=== PATIENT | male | born 1990 | race Hispanic/Latino ===

== ENCOUNTER 2018-02-11 15:58 | Emergency (ER) | payer BC, MEDICAID, OTHER ==
[2018-02-11 15:59] VITALS: BMI 22.1
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
[2018-02-11] MEDS ORDERED: Oxycodone/Acetaminophen 5/325 mg Tab PO STA (16:55)
--- NOTE | 2018-02-11 17:33 | RAD ---
PROCEDURE: Left Ankle Radiographs. HISTORY: Ankle pain questionable Achilles tendon injury or COMPARISON: None FINDINGS: BONES: Normal. No fracture. JOINTS: Normal. No osteoarthritis. Ankle mortise maintained. Talar dome intact SOFT TISSUES: Normal. OTHER FINDINGS: None. IMPRESSION: Normal left ankle radiographs.
--- NOTE | 2018-02-11 19:03 | ED PDOC ---
Physical Exam Vital Signs Reviewed: Yes Vital Signs Temp Pulse Resp BP Pulse Ox 02/11/18 22:24 98.5 F 63 18 123/82 99 02/11/18 16:35 98.4 F 82 117/70 18 L Temperature: Afebrile Blood Pressure: Normal Pulse: Regular Respiratory Rate: Normal Appearance: Positive for: Well-Appearing Pain Distress: None Mental Status: Positive for: Alert and Oriented X 3 Medical Decision Making ED Course and Treatment: 02/11/18 19:02 Patient endorsed to me by Dr. Antonio. Patient awaiting follow-up MRI and splint leg. Will see Dr. Bruno as outpatient. 02/11/18 22:39 Patient was placed in a plantar flexion splint by Tito with my supervision. No Neurovascular complications. Patient was given crutches with instructions Patient was given copy of MRI results. Patient was also given a CD copy of MRI and X-ray. Patient was informed to follow up with Dr. Bruno as outpatient. - RAD Interpretation Radiology Orders: 02/11/18 16:41 ANKLE LEFT 3 VIEWS ROUTINE [RAD] Stat 02/11/18 17:27 LOWER EXT ANY JOINT LEFT [MRI] Stat - Medication Orders Current Medication Orders: Discontinued Medications Oxycodone/Acetaminophen (Percocet 5/325 Mg Tab) 1 tab PO STAT STA Stop: 02/11/18 16:56 Last Admin: 02/11/18 17:13 Dose: 1 tab MAR Pain Assessment Document 02/11/18 17:13 HI (Rec: 02/11/18 17:14 MD [id number]) Pain Reassessment Is this a pain reassessment? No Sleep Is patient sleeping during reassessment? No Presence of Pain Presence of Pain Yes Location Left, Right or Bilateral Left Pain Location Body Site Leg - Scribe Statement The provider has reviewed the documentation as recorded by the Jackson Andrews Provider Scribe Attestation: All medical record entries made by the Scribe were at my direction and personally dictated by me. I have reviewed the chart and agree that the record accurately reflects my personal performance of the history, physical exam, medical decision making, and the department course for this patient. I have also personally directed, reviewed, and agree with the discharge instructions and disposition. Disposition/Present on Arrival - Present on Arrival Any Indicators Present on Arrival: No History of DVT/PE: No History of Uncontrolled Diabetes: No Urinary Catheter: No History of Decub. Ulcer: No History Surgical Site Infection Following: None - Disposition Have Diagnosis and Disposition been Completed?: No Diagnosis: Ankle pain, Achilles tendon tear Disposition: HOME/ ROUTINE Disposition Time: 22:00 Patient Plan: Discharge Condition: GOOD Discharge Instructions (ExitCare): Achilles Tendon Rupture (DC) Additional Instructions: Mr Weber, thank you for letting us take care of you today. Your provider was Dr. Rivas You were treated for Achilles Tear. The emergency medical care you received today was directed at your acute symptoms. If you were prescribed any medication, please fill it and take as directed. It may take several days for your symptoms to resolve. Return to the Emergency Department if your symptoms worsen, do not improve, or if you have any other problems. MAKE SURE TO CALL DR VIRGILIO ORELLANA FOR FOLLOW UP APPOINTMENT TOMORROW. BRING COPY OF MRI. Please contact your doctor or call one of the physicians/clinics you have been referred to that are listed on the Patient Visit Information form that is included in your discharge packet. Bring any paperwork you were given at discharge with you along with any medications you are taking to your follow up visit. Our treatment cannot replace ongoing medical care by a primary care provider (PCP) outside of the emergency department. Thank you for allowing the [facility] team to be part of your care today. If you had an X-Ray or CT scan: A Radiologist will review the ED reading if any change in treatment is needed we will contact you. If you had a blood, urine, or wound culture: It will take several days for the results, if any change in treatment is needed we will contact you. If you had an STI test: It will take 48 hours for the results. Please call after 1 week if you have not heard back. Prescriptions: Ibuprofen [Motrin] 600 mg PO Q6 PRN #30 tab PRN Reason: Pain, Moderate (4-7) oxyCODONE/Acetaminophen [Percocet 5/325 mg Tab] 1 ea PO Q6 PRN #15 tab PRN Reason: Pain, Moderate (4-7) Referrals: Priscila Singh MD [Primary Care Provider] - Follow up with primary Ted Ratliff MD [Staff Provider] - Follow up with primary Forms: [facility] (Icelandic), WORK NOTE
--- NOTE | 2018-02-11 21:57 | MRI ---
EXAM: MR Left Lower Extremity Without Intravenous Contrast, Ankle EXAM DATE/TIME: 02/11/2018 5:27 PM CLINICAL HISTORY: The patient age is 27 years old and is male; Injury or trauma; Injury Basketball injury yesterday; Late effect from previous injury; Swelling (edema); Ankle; Left; Injury date: 02/10/2018; Additional info: L ankle/l lower leg, evaluate for achilles tendon Facility exam id and description: Mri [id number] lower ext any joint left TECHNIQUE: Multiplanar magnetic resonance images of the left ankle without intravenous contrast. COMPARISON: DX - ANKLE LEFT 3 VIEWS ROUTINE 2018-02-11 16:59 FINDINGS: LIGAMENTS: Anterior talofibular: A small amount of fluid is seen adjacent to the anterior talofibular ligament, without a definitive acute tear. Posterior talofibular: No visualized acute tear. Anterior tibiofibular: There is mild edema adjacent to the anterior tibiofibular ligament, suggestive of ligament sprain. Posterior tibiofibular: No visualized acute tear. Calcaneofibular: No definitive acute tear. Deltoid: No visualized acute tear. TENDONS: Achilles: There is a near complete tear of the Achilles tendon, with retraction of torn fibers. This tear is approximately 4.7 cm from the distal attachment on the calcaneus. Flexor: No visualized acute tear. Extensor: No visualized acute tear. Peroneal: No visualized acute tear. Tibialis anterior:No visualized acute tear. Tibialis posterior:No visualized acute tear. Muscles: No acute abnormality. Fluid: There is a small tibiotalar joint effusion posteriorly. Sinus tarsi: Mild edema of fluid are visualized within the sinus tarsi. Plantar fascia:No visualized acute tear. Bones/joints: Mild T2 hyperintense edema/contusion is visualized within the lateral malleolus. Tiny synovial or ganglion cysts are identified adjacent to the lateral cuneiform bone. Soft tissues: There is significant soft tissue swelling posteriorly. Fluid is visualized adjacent to Achilles tendon. IMPRESSION: 1. There is a near complete tear of the Achilles tendon, with retraction of torn fibers. 2. There is significant soft tissue swelling posteriorly. Fluid is visualized adjacent to Achilles tendon. 3. Mild edema/contusion is visualized within the lateral malleolus. 4. There is a small tibiotalar joint effusion posteriorly. 5. There is mild edema adjacent to the anterior tibiofibular ligament, suggestive of ligament sprain. 6. Additional findings described above.
[2018-02-11 22:24] VITALS: BP 123/82; PULSE 63; RESP 18; TEMP 98.5; O2SAT 99
== END 2018-02-11 22:30 | disposition home or self-care (01) ==
LOC: ED 15:58
DX: M25.572 Pain in left ankle and joints of left foot (principal); S86.012A Strain of left Achilles tendon, initial encounter; Y93.67 Activity, basketball; Z87.891 Personal history of nicotine dependence

== ENCOUNTER 2018-11-21 12:22 | Observation (INO) | payer MEDICAID ==
[2018-11-21 12:25] VITALS: BMI 23.2
[2018-11-21] MEDS ORDERED: Sodium Chloride 0.9% 1,000 ML IV STA (12:45)
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
[2018-11-21 13:22] LABS: BASO # 0.02 K/mm3 (0.0-2.0); BASO % 0.4 % (0.0-3.0); EOS # 0.1 (0.0-0.7); EOS % 2.8 % (1.5-5.0); HEMOGLOBIN 14.1 g/dL (14.0-18.0); LYMPH # 1.3 (1.2-3.4); LYMPH % 27.7 % (22.0-35.0); MEAN CELL VOLUME 93.5 fl (80.0-105.0); MEAN CORPUSCULAR HEMOGLOBIN 30.5 pg (25.0-35.0); MEAN CORPUSCULAR HGB CONC 32.6 g/dl (31.0-37.0); MEAN PLATELET VOLUME 11.6 fl (7.0-11.0); MONO # 0.2 (0.1-0.6); MONO % 4.9 % (1.0-6.0); RBC 4.63 10^6/uL (3.5-6.1); RED CELL DISTRIBUTION WIDTH 12.6 % (11.5-14.5); WHITE BLOOD COUNT 4.7 10^3/uL (4.5-11.0)
[2018-11-21 13:33] LABS: ALB/GLOB RATIO 1.6 (1.1-1.8); ALBUMIN 4.8 g/dL (3.0-4.8); ALT/SGPT 36 U/L (7-56); AST/SGOT 33 U/L (17-59); BLOOD UREA NITROGEN 17 mg/dL (7-21); CALCIUM 9.7 mg/dL (8.4-10.5); GFR NON-AFRICAN AMERICAN > 60; LIPASE 59 U/L (23-300)
[2018-11-21 13:38] LABS: INR 1.13; PARTIAL THROMBOPLASTIN TIME 32.6 Seconds (26.9-38.3); PROTHROMBIN TIME 12.8 SECONDS (9.4-12.5)
[2018-11-21 13:41] LABS: D DIMER < 200 ng/mlDDU (0-243)
[2018-11-21 13:43] LABS: TROPONIN I < 0.01 ng/mL
[2018-11-21 14:02] LABS: INFLUENZA A B NEGATIVE FOR FLU A/B (NEGATIVE)
--- NOTE | 2018-11-21 14:21 | RAD ---
Date of service: 11/21/2018 HISTORY: cough COMPARISON: No prior. FINDINGS: LUNGS: No active pulmonary disease. PLEURA: No significant pleural effusion identified, no pneumothorax apparent. CARDIOVASCULAR: No aortic atherosclerotic calcification present. Normal cardiac size. No pulmonary vascular congestion. OSSEOUS STRUCTURES: No significant abnormalities. VISUALIZED UPPER ABDOMEN: Normal. OTHER FINDINGS: None. IMPRESSION: No active disease.
[2018-11-21 15:05] LABS: PH,URINE 7.5 (4.7-8.0); URINE BILIRUBIN NEGATIVE (NEGATIVE); URINE BLOOD NEGATIVE (NEGATIVE); URINE GLUCOSE (UA) NEGATIVE (NEGATIVE); URINE LEUKOCYTE ESTERASE NEGATIVE Leu/uL (NEGATIVE); URINE PROTEIN NEGATIVE mg/dL (<30 mg/dL); URINE UROBILINOGEN 0.2 E.U./dL (<1 E.U./dL)
[2018-11-21 15:06] LABS: URINE APPEARANCE CLEAR (CLEAR); URINE COLOR YELLOW (YELLOW)
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
[2018-11-21 16:52] LABS: HDL CHOLESTEROL 41 mg/dL (29-60)
[2018-11-21 17:03] LABS: LDL CHOLESTEROL 104 mg/dL (0-129)
[2018-11-21 18:20] VITALS: O2SAT 97
[2018-11-21] MEDS ORDERED: Apap-Butalbital-Caffeine 325-50-40mg Tab PO ONE (22:07)
--- NOTE | 2018-11-21 22:10 | CP.PCM.PCO ---
<James Stanley - Last Filed: 11/21/18 22:09> Addendum Addendum: PGY1 House Doc Note Patient has complaint of migraine. He endorses history of migraine. No pain medication is on board. Ordered x1 dose Fioricet. Will monitor. <Lacy Kent - Last Filed: 11/22/18 19:21> Attending/Attestation - Attestation I have personally seen and examined this patient.: No I have fully participated in the care of the patient.: No I have reviewed all pertinent clinical information: No
--- NOTE | 2018-11-21 22:40 | CARD ---
APPROVED REPORT Date of service: 11/21/2018 EKG Measurement Heart [id number] <Conclusion> Normal sinus rhythm Normal ECG
[2018-11-21] MEDS ORDERED: Pneumococcal 23-Valent Vaccine IM ONE (22:50)
[2018-11-21] MEDS ORDERED: Influenza Vaccine 60 mcg/0.5 mL SYR (4YR UP) IM ONE (22:50)
--- NOTE | 2018-11-22 01:33 | CON ---
DATE: 11/21/2018 CONSULT SERVICE: Cardiology. REASON FOR CONSULTATION: Cardiac evaluation, admitted with chest pain, and history of leaky valve. BRIEF CLINICAL HISTORY: This is a 28-year-old male with history of ex-alcohol abuse, history of recently quit smoking, and history in the past substance abuse, came in with complaint of chest pain off and on for last one week to 10 days' duration. Chest pain mostly on taking a deep breath and coughing. Denies any chest pain, dyspnea on exertion. The patient yesterday went to the [facility] with abdominal pain and check for and had a CAT scan done and released, but today went to his PMD for check up and mentioned about the chest pain, who advised him to come to the emergency room. 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 PAST SURGICAL HISTORY: Significant for hernia repair at the age of 3. SOCIAL HISTORY: History of heavy alcohol abuse and is clean from 31 days as per the patient. History of tobacco abuse, quit 5 months ago and history of substance abuse 4 to 5 years ago. FAMILY HISTORY: Unknown. The patient is adopted, but cleans at biological mother was history of alcohol abuse and recently with heart condition. Currently, the patient is clean that he quit drinking 31 days as a clean and he was heavy drinker, stop smoking 5 months ago. Denies any history of substance abuse, he used to smoke in the past. As mentioned, he was adopted and unknown about the family history except that the mother was alcohol abuse and recently and history of heart condition. 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 REVIEW OF SYSTEMS: As per HPI. Denies any chest pain, dyspnea on exertion. No chest pain on exertion, use off and on asthma puff, Proventil. PHYSICAL EXAMINATION: VITAL SIGNS: As follows; height of the patient 5 feet 10 inches, weight of the patient 162 pounds, and body mass index 23.2 kg/m2. Rest of the vitals; temperature is afebrile, heart rate is 60, and blood pressure 116/73. HEENT: PERRLA. Extraocular muscles intact. NECK: Supple. No carotid bruit or thyromegaly. CHEST: Clear to auscultation. HEART: S1 and S2 regular. ABDOMEN: Soft. EXTREMITIES: Clubbing and cyanosis negative. LABORATORY DATA: EKG shows normal sinus, no acute ST-T changes noted. WBC 4.7, hemoglobin 14.1, hematocrit 43.3, and platelet count 134. Chemistry shows sodium 139, potassium 4.4, chloride 104, carbon 28, anion gap of 11, BUN 17, and creatinine of 1.1. Troponin is 0.01. TSH 4.87. IMPRESSION AND PLAN: A 28-year-old male with history of substance abuse, history of alcohol abuse, history of tobacco abuse, admitted with chest pain, though chest pain is very atypical, but given the lifestyle, the patient is at high risk for underlying coronary artery disease because of the lifestyle heavy alcohol abuse, heavy tobacco abuse and substance abuse. Given suggest stress test as a outpatient, agree to follow up CPK and troponin. If CPK and troponin is negative after the echo, the patient can be discharged because the patient has a history of some leaky valves, so get echo tomorrow and possibly discharged home tomorrow if remained stable. We will schedule a stress test in one week as outpatient. We will follow up the CPK and troponin. Thank you Dr. Lemus for providing us the opportunity in taking care of the patient, Celso Shahbina. Sonja Frias MD
[2018-11-22 06:51] LABS: HDL CHOLESTEROL 40 mg/dL (29-60)
--- NOTE | 2018-11-22 06:58 | CP.PCM.DIS ---
<Efrain Vasquez - Last Filed: 11/22/18 16:36> Provider - Provider Date of Admission: 11/21/18 15:06 Attending physician: Sonja Lemus MD Primary care physician: Priscila Singh MD Consults: 11/21/18 16:16 Physician Consult Routine Comment: Consulting Provider: Sonja Oakley Consulting Physician: Sonja Oakley Reason for Consult: atypical chest pain 11/21/18 22:50 Inpatient PATIENT ATTENDANT Core Measures Referral Routine Comment: cp/enteritis/uri Physician Instructions: Reason For Exam: assess Transition In Care/Readmission Reduction Routine Comment: cp/enteritis/uri Physician Instructions: Reason For Exam: assess Time Spent in preparation of Discharge (in minutes): 45 Diagnosis - Discharge Diagnosis (1) Chest pain Status: Resolved (2) Ruled out for myocardial infarction Status: Resolved (3) Alcohol abuse Status: Chronic (4) Asthma Status: Chronic Hospital Course - Lab Results Lab Results: Most Recent Lab Values WBC 4.7 10^3/uL (4.5-11.0) 11/21/18 13:05 RBC 4.63 10^6/uL (3.5-6.1) 11/21/18 13:05 Hgb 14.1 g/dL (14.0-18.0) 11/21/18 13:05 Hct 43.3 % (42.0-52.0) 11/21/18 13:05 MCV 93.5 fl (80.0-105.0) 11/21/18 13:05 MCH 30.5 pg (25.0-35.0) 11/21/18 13:05 MCHC 32.6 g/dl (31.0-37.0) 11/21/18 13:05 RDW 12.6 % (11.5-14.5) 11/21/18 13:05 Plt Count 134 10^3/uL (120.0-450.0) 11/21/18 13:05 MPV 11.6 fl (7.0-11.0) H 11/21/18 13:05 Neut % (Auto) 64.2 % (50.0-68.0) 11/21/18 13:05 Lymph % (Auto) 27.7 % (22.0-35.0) 11/21/18 13:05 [place] % (Auto) 4.9 % (1.0-6.0) 11/21/18 13:05 Eos % (Auto) 2.8 % (1.5-5.0) 11/21/18 13:05 Baso % (Auto) 0.4 % (0.0-3.0) 11/21/18 13:05 Lymph # (Auto) 1.3 (1.2-3.4) 11/21/18 13:05 [place] # (Auto) 0.2 (0.1-0.6) 11/21/18 13:05 Eos # (Auto) 0.1 (0.0-0.7) 11/21/18 13:05 Baso # (Auto) 0.02 K/mm3 (0.0-2.0) 11/21/18 13:05 Absolute Neuts (auto) 3.01 (1.4-6.5) 11/21/18 13:05 PT 12.8 SECONDS (9.4-12.5) H 11/21/18 13:05 INR 1.13 11/21/18 13:05 APTT 32.6 Seconds (26.9-38.3) 11/21/18 13:05 D-Dimer, Quantitative < 200 ng/mlDDU (0-243) 11/21/18 13:05 Sodium 139 mmol/L (132-148) 11/21/18 13:05 Potassium 4.4 mmol/L (3.6-5.0) 11/21/18 13:05 Chloride 104 mmol/L (98-107) 11/21/18 13:05 Carbon Dioxide 28 mmol/L (21-33) 11/21/18 13:05 Anion Gap 11 (10-20) 11/21/18 13:05 BUN 17 mg/dL (7-21) 11/21/18 13:05 Creatinine 1.1 mg/dl (0.8-1.5) 11/21/18 13:05 Est GFR ( Amer) > 60 11/21/18 13:05 Est GFR (Non-Af Amer) > 60 11/21/18 13:05 Random Glucose 93 mg/dL (70-110) 11/21/18 13:05 Hemoglobin A1c 5.3 % (4.2-6.5) 11/21/18 16:41 Calcium 9.7 mg/dL (8.4-10.5) 11/21/18 13:05 Magnesium 2.1 mg/dL (1.7-2.2) 11/21/18 13:05 Total Bilirubin 1.2 mg/dL (0.2-1.3) 11/21/18 13:05 AST 33 U/L (17-59) 11/21/18 13:05 ALT 36 U/L (7-56) 11/21/18 13:05 Alkaline Phosphatase 57 U/L (38-126) 11/21/18 13:05 Lactate Dehydrogenase 403 U/L (333-699) 11/21/18 13:05 Total Creatine Kinase 87 U/L (35-230) 11/21/18 13:05 Troponin I < 0.01 ng/mL 11/21/18 18:50 Total Protein 7.7 g/dL (5.8-8.3) 11/21/18 13:05 Albumin 4.8 g/dL (3.0-4.8) 11/21/18 13:05 Globulin 2.9 gm/dL 11/21/18 13:05 Albumin/Globulin Ratio 1.6 (1.1-1.8) 11/21/18 13:05 Triglycerides 112 mg/dL (35-160) 11/22/18 06:00 Cholesterol 169 mg/dL (130-200) 11/22/18 06:00 LDL Cholesterol Direct 104 mg/dL (0-129) 11/21/18 13:05 HDL Cholesterol 40 mg/dL (29-60) 11/22/18 06:00 Lipase 59 U/L (23-300) 11/21/18 13:05 TSH 3rd Generation 4.87 mIU/mL (0.46-4.68) H 11/21/18 16:41 Urine Color Yellow (YELLOW) 11/21/18 14:51 Urine Appearance Clear (CLEAR) 11/21/18 14:51 Urine pH 7.5 (4.7-8.0) 11/21/18 14:51 Ur Specific Calder 1.020 (1.005-1.035) 11/21/18 14:51 Urine Protein Negative mg/dL (<30 mg/dL) 11/21/18 14:51 Urine Glucose (UA) Negative mg/dL (NEGATIVE) 11/21/18 14:51 Urine Ketones Negative mg/dL (NEGATIVE) 11/21/18 14:51 Urine Blood Negative (NEGATIVE) 11/21/18 14:51 Urine Nitrate Negative (NEGATIVE) 11/21/18 14:51 Urine Bilirubin Negative (NEGATIVE) 11/21/18 14:51 Urine Urobilinogen 0.2 E.U./dL (<1 E.U./dL) 11/21/18 14:51 Ur Leukocyte Esterase Negative Stew/uL (NEGATIVE) 11/21/18 14:51 Influenza Typ A,B (EIA) Negative for flu a/b (NEGATIVE) 11/21/18 13:15 Grp A Beta Strep Ag Negative (NEGATIVE) 11/21/18 13:15 - Hospital Course Hospital Course: Patient is a 28 year old male with a past medical history of mild, intermittent asthma, alcohol abuse (stopped 1 month ago), gastritis, and tobacco use (stopped 1 month ago) who presented with 1.5 weeks of intermittent chest pain, sharp in nature, occasionally radiating to the left that occurs during rest and with exertion, that is sometimes associated with shortness of breath. He reports the chest pain started 1.5 weeks ago and relates to have concurrent upper respiratory symptoms. In the course of his hospital stay, CXR was negative. EKG showed NSR @ 64 bpm, no ST changes. Echo showed normal left ventricular size and function, mild aortic regurg and trace mitral and tricuspid regurg. Troponins were negative x 3, lipid panel and HbA1c were normal. Cardiology, Dr. Oakley consulted and recommended that patient to follow up in his office for a stress test in 1 week. Upon discharge, patient was instructed to follow up with Dr. Oakley and return to the emergency room for worsening or newly concerning symtoms. Patient is medically stable for discharge. Discharge Exam - Additional Findings Additional findings: - Constitutional Appears: Well, Non-toxic - Head Exam Head Exam: ATRAUMATIC, NORMOCEPHALIC - Eye Exam Eye Exam: EOMI, Normal appearance - ENT Exam ENT Exam: Mucous Membranes Moist, Normal Oropharynx - Neck Exam Neck exam: Positive for: Normal Inspection - Respiratory Exam Respiratory Exam: Clear to Auscultation Bilateral, NORMAL BREATHING PATTERN. absent: Accessory Muscle Use, Respiratory Distress - Cardiovascular Exam Cardiovascular Exam: RRR, +S1, +S2. absent: Clicks, Diastolic murmur, Systolic Murmur - GI/Abdominal Exam GI & Abdominal Exam: Normal Bowel Sounds, Soft, Tenderness (lower abdomen) - Extremities Exam Extremities exam: Positive for: normal inspection. Negative for: calf tenderness - Back Exam Back exam: NORMAL INSPECTION. absent: CVA tenderness (L), CVA tenderness (R) - Neurological Exam Neurological exam: Alert, CN II-XII Intact, Oriented x3 - Psychiatric Exam Psychiatric exam: Normal Affect, Normal Mood - Skin Skin Exam: Dry, Intact, Normal Color, Warm Discharge Plan - Follow Up Plan Condition: GOOD Disposition: HOME/ ROUTINE Instructions: Cardiac Stress Test, Heart Healthy Diet, Chest Pain Additional Instructions: 1. Resume all home medication as prescribed by your doctor. 2. Follow up with you primary care doctor within 1 week of discharge. Please repeat blood work for your thyroid (TSH) in 6 weeks. 3. Follow up with Steel Die Engraver, Dr. Frias in 1 week and schedule for a stress test in his office. 4. Return to the emergency room for worsening or newly concerning symptoms. Diet: Heart healthy diet Patient refused the flu and the pneumococcal vaccines. Referrals: Priscila Singh MD [Primary Care Provider] - Sonja Frias MD [Staff Provider] - Sumaya Fuentes MD [Medical Doctor] - <Sonja Lemus - Last Filed: 11/23/18 12:06> Provider - Provider Date of Admission: 11/21/18 15:06 Attending physician: Sonja Lemus MD Primary care physician: Priscila Singh MD Consults: 11/21/18 16:16 Physician Consult Routine Comment: Consulting Provider: Sonja Oakley Consulting Physician: Sonja Oakley Reason for Consult: atypical chest pain 11/21/18 22:50 Inpatient PATIENT ATTENDANT Core Measures Referral Routine Comment: cp/enteritis/uri Physician Instructions: Reason For Exam: assess Transition In Care/Readmission Reduction Routine Comment: cp/enteritis/uri Physician Instructions: Reason For Exam: assess Hospital Course - Lab Results Lab Results: Micro Results 11/21/18 14:51 Urine,Clean Catch Urine Culture - Final No Growth (<1,000 CFU/ML) 11/21/18 13:15 Throat Group A Strep Throat Culture - Final NO BETA STREP GROUP A ISOLATED. Most Recent Lab Values WBC 4.7 10^3/uL (4.5-11.0) 11/21/18 13:05 RBC 4.63 10^6/uL (3.5-6.1) 11/21/18 13:05 Hgb 14.1 g/dL (14.0-18.0) 11/21/18 13:05 Hct 43.3 % (42.0-52.0) 11/21/18 13:05 MCV 93.5 fl (80.0-105.0) 11/21/18 13:05 MCH 30.5 pg (25.0-35.0) 11/21/18 13:05 MCHC 32.6 g/dl (31.0-37.0) 11/21/18 13:05 RDW 12.6 % (11.5-14.5) 11/21/18 13:05 Plt Count 134 10^3/uL (120.0-450.0) 11/21/18 13:05 MPV 11.6 fl (7.0-11.0) H 11/21/18 13:05 Neut % (Auto) 64.2 % (50.0-68.0) 11/21/18 13:05 Lymph % (Auto) 27.7 % (22.0-35.0) 11/21/18 13:05 [place] % (Auto) 4.9 % (1.0-6.0) 11/21/18 13:05 Eos % (Auto) 2.8 % (1.5-5.0) 11/21/18 13:05 Baso % (Auto) 0.4 % (0.0-3.0) 11/21/18 13:05 Lymph # (Auto) 1.3 (1.2-3.4) 11/21/18 13:05 [place] # (Auto) 0.2 (0.1-0.6) 11/21/18 13:05 Eos # (Auto) 0.1 (0.0-0.7) 11/21/18 13:05 Baso # (Auto) 0.02 K/mm3 (0.0-2.0) 11/21/18 13:05 Absolute Neuts (auto) 3.01 (1.4-6.5) 11/21/18 13:05 PT 12.8 SECONDS (9.4-12.5) H 11/21/18 13:05 INR 1.13 11/21/18 13:05 APTT 32.6 Seconds (26.9-38.3) 11/21/18 13:05 D-Dimer, Quantitative < 200 ng/mlDDU (0-243) 11/21/18 13:05 Sodium 139 mmol/L (132-148) 11/21/18 13:05 Potassium 4.4 mmol/L (3.6-5.0) 11/21/18 13:05 Chloride 104 mmol/L (98-107) 11/21/18 13:05 Carbon Dioxide 28 mmol/L (21-33) 11/21/18 13:05 Anion Gap 11 (10-20) 11/21/18 13:05 BUN 17 mg/dL (7-21) 11/21/18 13:05 Creatinine 1.1 mg/dl (0.8-1.5) 11/21/18 13:05 Est GFR ( Amer) > 60 11/21/18 13:05 Est GFR (Non-Af Amer) > 60 11/21/18 13:05 Random Glucose 93 mg/dL (70-110) 11/21/18 13:05 Hemoglobin A1c 5.3 % (4.2-6.5) 11/21/18 16:41 Calcium 9.7 mg/dL (8.4-10.5) 11/21/18 13:05 Magnesium 2.1 mg/dL (1.7-2.2) 11/21/18 13:05 Total Bilirubin 1.2 mg/dL (0.2-1.3) 11/21/18 13:05 AST 33 U/L (17-59) 11/21/18 13:05 ALT 36 U/L (7-56) 11/21/18 13:05 Alkaline Phosphatase 57 U/L (38-126) 11/21/18 13:05 Lactate Dehydrogenase 403 U/L (333-699) 11/21/18 13:05 Total Creatine Kinase 87 U/L (35-230) 11/21/18 13:05 Troponin I < 0.01 ng/mL 11/22/18 06:00 Total Protein 7.7 g/dL (5.8-8.3) 11/21/18 13:05 Albumin 4.8 g/dL (3.0-4.8) 11/21/18 13:05 Globulin 2.9 gm/dL 11/21/18 13:05 Albumin/Globulin Ratio 1.6 (1.1-1.8) 11/21/18 13:05 Triglycerides 112 mg/dL (35-160) 11/22/18 06:00 Cholesterol 169 mg/dL (130-200) 11/22/18 06:00 LDL Cholesterol Direct 102 mg/dL (0-129) 11/22/18 06:00 HDL Cholesterol 40 mg/dL (29-60) 11/22/18 06:00 Lipase 59 U/L (23-300) 11/21/18 13:05 Free T4 1.32 ng/dL (0.78-2.19) 11/22/18 07:00 TSH 3rd Generation 4.87 mIU/mL (0.46-4.68) H 11/21/18 16:41 Urine Color Yellow (YELLOW) 11/21/18 14:51 Urine Appearance Clear (CLEAR) 11/21/18 14:51 Urine pH 7.5 (4.7-8.0) 11/21/18 14:51 Ur Specific [place] 1.020 (1.005-1.035) 11/21/18 14:51 Urine Protein Negative mg/dL (<30 mg/dL) 11/21/18 14:51 Urine Glucose (UA) Negative mg/dL (NEGATIVE) 11/21/18 14:51 Urine Ketones Negative mg/dL (NEGATIVE) 11/21/18 14:51 Urine Blood Negative (NEGATIVE) 11/21/18 14:51 Urine Nitrate Negative (NEGATIVE) 11/21/18 14:51 Urine Bilirubin Negative (NEGATIVE) 11/21/18 14:51 Urine Urobilinogen 0.2 E.U./dL (<1 E.U./dL) 11/21/18 14:51 Ur Leukocyte Esterase Negative Stew/uL (NEGATIVE) 11/21/18 14:51 HIV 1&2 Ag/Ab, 4th Gen Nonreactive (Nonreactive) 11/21/18 17:24 Influenza Typ A,B (EIA) Negative for flu a/b (NEGATIVE) 11/21/18 13:15 Grp A Beta Strep Ag Negative (NEGATIVE) 11/21/18 13:15 Attending/Attestation - Attestation I have personally seen and examined this patient.: Yes I have fully participated in the care of the patient.: Yes I have reviewed all pertinent clinical information, including history, physical exam and plan: Yes Notes (Text): 11/23/18 12:03 Patient was seen and examined with electromedical equipment technician. 28 year old male with a past medical history of mild, intermittent asthma, alcohol abuse (stopped 1 month ago), was admitted with atypical chest pain,EKG is negative for ischemic changes, patient has chest wall tenderness. Serial troponin are normal. Echo showed normal systolic function. Patient was evaluated by cardiology and out patient stress test has been recommended. Management plan was discussed in detail with patient. Education was provided.
[2018-11-22 07:02] LABS: LDL CHOLESTEROL 102 mg/dL (0-129)
[2018-11-22 07:05] LABS: TROPONIN I < 0.01 ng/mL
--- NOTE | 2018-11-22 07:58 | CP.PCM.PN ---
Subjective - Date & Time of Evaluation Date of Evaluation: 11/22/18 Time of Evaluation: 06:20 - Subjective Subjective: Awake, alert, no distress Reason for consultation and follow up:Cardiac evaluation of chest pain, history of 'leaky valve" Seen and examined by me and Dr. Oakley Objective - Vital Signs/Intake and Output Vital Signs (last 24 hours): Temp Pulse Resp BP Pulse Ox 97.5 F L 72 18 97/57 L 97 11/22/18 06:00 11/22/18 06:00 11/22/18 06:00 11/22/18 06:00 11/21/18 17:25 Intake and Output: 11/22/18 11/22/18 06:59 18:59 Intake Total 1880 Output Total 2000 Balance -120 - Medications Medications: Current Medications Famotidine (Pepcid) 20 mg PO HS [facility] Last Admin: 11/21/18 22:01 Dose: 20 mg - Labs Labs: 11/21/18 13:05 11/21/18 13:05 PT 12.8 SECONDS (9.4-12.5) H 11/21/18 13:05 INR 1.13 11/21/18 13:05 APTT 32.6 Seconds (26.9-38.3) 11/21/18 13:05 - Constitutional Appears: Non-toxic, No Acute Distress - Head Exam Head Exam: NORMAL INSPECTION, NORMOCEPHALIC - Eye Exam Eye Exam: Normal appearance Pupil Exam: NORMAL ACCOMODATION - ENT Exam ENT Exam: Mucous Membranes Moist, Normal Exam - Respiratory Exam Respiratory Exam: Clear to Ausculation Bilateral, NORMAL BREATHING PATTERN - Cardiovascular Exam Cardiovascular Exam: REGULAR RHYTHM, +S1, +S2 - GI/Abdominal Exam GI & Abdominal Exam: Soft, Normal Bowel Sounds - Extremities Exam Extremities Exam: Full ROM, Normal Capillary Refill - Neurological Exam Neurological Exam: Alert, Awake, Oriented x3 - Psychiatric Exam Psychiatric exam: Normal Affect, Normal Mood - Skin Skin Exam: Dry, Normal Color, Warm Assessment and Plan - Assessment and Plan (Free Text) Assessment: A 28 year old male who came in to the ER due to intermittent chest pain off and on for the past week to 10 days. Chest pain mostly when taking a deep breath and coughing. He was at [facility] 2 days ago due to abdominal pain. CT of abdomen was done and was sent home. Yesterday he went to his PMD and mentioned chest pain and was sent to [facility] ER. History of asthma, "leaky valve" since 6 years old, ex- alcohol abuse ( stopped 1 month ago) recently quit a month ago smoking 12 pack year, history of substance abuse, hernia repair,gastritis. Troponin normal (0.01 x 3). Because of lifestyle of patient, patient is high risk for coronary artery disease, Admitted for atypical chest pain, ruled out myocardial ischemia. For echo today to evaluate valve function and EF. Will schedule Stress test as out patient. Troponin normal today. Plan: No distress, denies chest pain For ECHO today to evaluate "leaky valve' Troponin normal today May discharge from cardiac standpoint Will schedule stress test as outpatient Heart rate stable Blood pressure stable Continue current treatment Continue current medications Follow up in office in 1-2 weeks Plan and treatment discussed with Dr. Oakley
[2018-11-22 12:40] VITALS: BP 102/63; RESP 21; TEMP 97.8
[2018-11-22 14:53] VITALS: PULSE 66
--- NOTE | 2018-11-22 16:09 | CARD ---
APPROVED REPORT Date of service: 11/22/2018 EXAM: Two-dimensional and M-mode echocardiogram with Doppler and color Doppler. INDICATION Chest Pain MR/TR 2D DIMENSIONS Left Atrium (2D)2.4 (1.6-4.0cm)IVSd1.0 (0.7-1.1cm) LVDd4.8 (3.9-5.9cm)PWd0.8 (0.7-1.1cm) LVDs3.4 (2.5-4.0cm)FS (%) 29.7 % LVEF (%)56.5 (>50%) M-Mode DIMENSIONS Aortic Root2.80 (2.2-3.7cm)Aortic Cusp Exc.2.20 (1.5-2.0cm) Aortic Valve AoV Peak [id number]/Carole Peak GR.7mmHg Mitral Valve E/A ratio0.0 TDI E/Lateral E'0.0E/Medial E'0.0 Tricuspid Valve TR Peak [id number] [id number] Peak Gr.17mmHg [id number] LEFT VENTRICLE The left ventricle is normal size. There is normal left ventricular wall thickness. The left ventricular function is normal. The left ventricular ejection fraction is within the normal range.Ej.Fr: 57%. RIGHT VENTRICLE The right ventricle is normal size. The right ventricular systolic function is normal. ATRIA The left atrium size is normal. The right atrium size is normal. AORTIC VALVE Aortic Valve Not Well Seen. Parts seen. Looks to be Normal. There is mild aortic regurgitation. MITRAL VALVE The mitral valve is normal in structure. Mitral regurgitation is trace. TRICUSPID VALVE The tricuspid valve is normal in structure. There is trace to mild tricuspid regurgitation. PERICARDIAL EFFUSION There is no pericardial effusion. <Conclusion> The left ventricle is normal size. There is normal left ventricular wall thickness. The left ventricular function is normal.EJ.Fr: 57%. The right ventricle is normal size. The right ventricular systolic function is normal. The left atrium size is normal. The right atrium size is normal. Aortic Valve Not Well Seen. Parts seen. Looks to be Normal. There is mild aortic regurgitation. The mitral valve is normal in structure. Mitral regurgitation is trace. The tricuspid valve is normal in structure. There is trace to mild tricuspid regurgitation. There is no pericardial effusion.
== END 2018-11-22 18:33 | disposition home or self-care (01) ==
LOC: ED 12:22 → ERH 15:06 → 2RNO 17:26
PROVIDERS: ADMIT Internal Medicine; ATTEND Internal Medicine
DX: R07.89 Other chest pain (principal); F10.10 Alcohol abuse, uncomplicated; Z87.891 Personal history of nicotine dependence; G43.909 Migraine, unspecified, not intractable, without status migrainosus; J45.20 Mild intermittent asthma, uncomplicated; K29.70 Gastritis, unspecified, without bleeding
CPT/HCPCS: 36415; 71045; 80053; 80061; 81003; 82550; 83036; 83615; 83690; 83735; 84439; 84443; 84484; 85025; 85378; 85610; 85730; 87070; 87086; 87389; 87430; 87804; 93005; 93306; 96374; 99283; G0378; J7030

== ENCOUNTER 2019-01-14 19:24 | Emergency (ER) | payer MEDICAID ==
[2019-01-14 19:24] VITALS: BMI 23.2
[2019-01-14] MEDS ORDERED: Sodium Chloride 0.9% 1,000 ML IV STA (19:49)
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
[2019-01-14 20:54] LABS: URINE BILIRUBIN NEGATIVE (NEGATIVE); URINE BLOOD NEGATIVE (NEGATIVE); URINE GLUCOSE (UA) NEGATIVE (NEGATIVE); URINE LEUKOCYTE ESTERASE NEGATIVE Leu/uL (NEGATIVE); URINE PROTEIN NEGATIVE mg/dL (<30 mg/dL); URINE UROBILINOGEN 0.2 E.U./dL (<1 E.U./dL)
[2019-01-14 20:58] LABS: BASO # 0.04 K/mm3 (0.0-2.0); BASO % 0.7 % (0.0-3.0); EOS # 0.2 (0.0-0.7); EOS % 3.9 % (1.5-5.0); HEMOGLOBIN 14.6 g/dL (14.0-18.0); LYMPH # 1.7 (1.2-3.4); MEAN CELL VOLUME 90.5 fl (80.0-105.0); MEAN CORPUSCULAR HEMOGLOBIN 30.7 pg (25.0-35.0); MEAN PLATELET VOLUME 11.3 fl (7.0-11.0); MONO # 0.3 (0.1-0.6); MONO % 4.3 % (1.0-6.0); RBC 4.75 10^6/uL (3.5-6.1); RED CELL DISTRIBUTION WIDTH 12.3 % (11.5-14.5); URINE APPEARANCE CLEAR (CLEAR); URINE COLOR YELLOW (YELLOW); WHITE BLOOD COUNT 6.1 10^3/uL (4.5-11.0)
[2019-01-14 21:03] LABS: INR 1.1; PARTIAL THROMBOPLASTIN TIME 33.4 Seconds (26.9-38.3); PROTHROMBIN TIME 12.2 SECONDS (9.4-12.5)
[2019-01-14 21:10] LABS: ALB/GLOB RATIO 1.6 (1.1-1.8); ALBUMIN 4.5 g/dL (3.0-4.8); ALT/SGPT 43 U/L (7-56); AST/SGOT 46 U/L (17-59); BLOOD UREA NITROGEN 15 mg/dL (7-21); CALCIUM 9.5 mg/dL (8.4-10.5); GFR NON-AFRICAN AMERICAN > 60
[2019-01-14 21:15] VITALS: TEMP 97.9
[2019-01-14 21:22] LABS: TROPONIN I < 0.01 ng/mL
[2019-01-14] MEDS ORDERED: Albuterol-Ipratrop 3 mg / 0.5 (3 ml) UD IH STA (21:29)
[2019-01-14 23:43] VITALS: BP 127/76; PULSE 67; RESP 17; O2SAT 98
--- NOTE | 2019-01-15 08:50 | RAD ---
Date of service: 01/14/2019 HISTORY: rule out pneumonia COMPARISON: 11/21/2018 TECHNIQUE: Chest PA and lateral views FINDINGS: LUNGS: No active pulmonary disease. PLEURA: No significant pleural effusion identified. No pneumothorax apparent. CARDIOVASCULAR: No aortic atherosclerotic calcification present. Normal cardiac size. No pulmonary vascular congestion. OSSEOUS STRUCTURES: No significant abnormalities. VISUALIZED UPPER ABDOMEN: Normal. OTHER FINDINGS: None. IMPRESSION: No active disease.
--- NOTE | 2019-01-15 09:14 | CARD ---
APPROVED REPORT Date of service: 01/14/2019 EKG Measurement Heart [id number] <Conclusion> Normal sinus rhythm Normal Electrocardiogram
== END 2019-01-14 22:50 | disposition home or self-care (01) ==
LOC: ED 19:24
DX: J40 Bronchitis, not specified as acute or chronic (principal); Z87.891 Personal history of nicotine dependence
CPT/HCPCS: 71046; 80053; 81003; 82550; 83615; 83735; 84484; 85025; 85610; 85730; 93005; 96360; 99284; J7030

== ENCOUNTER 2019-02-14 12:06 | Emergency (ER) | payer SELFPAY ==
[2019-02-14 12:06] VITALS: BMI 23.2
[2019-02-14 12:13] VITALS: RESP 18
[2019-02-14] MEDS ORDERED: Albuterol-Ipratrop 3 mg / 0.5 (3 ml) UD IH STA (12:16)
[2019-02-14] MEDS ORDERED: Sodium Chloride 0.9% 1,000 ML IV STA ×2 (12:16→12:28)
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
[2019-02-14 12:32] VITALS: TEMP 98
[2019-02-14 12:54] LABS: BASO # 0.01 K/mm3 (0.0-2.0); BASO % 0.3 % (0.0-3.0); EOS # 0.2 (0.0-0.7); EOS % 5.2 % (1.5-5.0); HEMOGLOBIN 13.6 g/dL (14.0-18.0); LYMPH # 1.4 (1.2-3.4); LYMPH % 41.3 % (22.0-35.0); MEAN CELL VOLUME 90.4 fl (80.0-105.0); MEAN CORPUSCULAR HEMOGLOBIN 30.5 pg (25.0-35.0); MEAN CORPUSCULAR HGB CONC 33.7 g/dl (31.0-37.0); MEAN PLATELET VOLUME 11.1 fl (7.0-11.0); MONO # 0.2 (0.1-0.6); MONO % 6.6 % (1.0-6.0); RBC 4.46 10^6/uL (3.5-6.1); WHITE BLOOD COUNT 3.5 10^3/uL (4.5-11.0)
[2019-02-14 13:09] LABS: ALB/GLOB RATIO 1.6 (1.1-1.8); ALBUMIN 4.2 g/dL (3.0-4.8); ALT/SGPT 33 U/L (7-56); AST/SGOT 28 U/L (17-59); BLOOD UREA NITROGEN 13 mg/dL (7-21); CALCIUM 8.9 mg/dL (8.4-10.5); GFR NON-AFRICAN AMERICAN > 60; LIPASE 74 U/L (23-300)
[2019-02-14 13:21] LABS: B-TYPE NATRIURETIC PEPTIDE 114 pg/mL (0-450); TROPONIN I < 0.01 ng/mL
[2019-02-14 14:01] VITALS: BP 129/87; PULSE 85; O2SAT 99
--- NOTE | 2019-02-14 14:25 | RAD ---
Date of service: 02/14/2019 HISTORY: cp COMPARISON: Chest radiograph dated 01/14/2019. TECHNIQUE: Chest PA and lateral views FINDINGS: LUNGS: No active pulmonary disease. PLEURA: No significant pleural effusion identified. No pneumothorax apparent. CARDIOVASCULAR: No aortic atherosclerotic calcification present. Normal cardiac size. No pulmonary vascular congestion. OSSEOUS STRUCTURES: No significant abnormalities. VISUALIZED UPPER ABDOMEN: Normal. OTHER FINDINGS: None. IMPRESSION: No active disease.
--- NOTE | 2019-02-14 20:45 | CARD ---
APPROVED REPORT Date of service: 02/14/2019 EKG Measurement Heart [id number] <Conclusion> Normal sinus rhythm Normal ECG
== END 2019-02-14 14:00 | disposition home or self-care (01) ==
LOC: ED 12:06
DX: J40 Bronchitis, not specified as acute or chronic (principal); R07.9 Chest pain, unspecified; Z87.891 Personal history of nicotine dependence
CPT/HCPCS: 71046; 80053; 83690; 83880; 84484; 85025; 93005; 99283; J7030